=== PATIENT | female | born 1965 | race Two or more races ===

== ENCOUNTER 2021-02-11 09:31 | Outpatient (CLI) | payer OTHER | END 2021-02-11 09:32 | disposition home or self-care (01) | LOC: LAB 09:31 | PROVIDERS: ATTEND Specialist | DX: I10 Essential (primary) hypertension (principal); E55.9 Vitamin D deficiency, unspecified; N39.0 Urinary tract infection, site not specified; Z44.8 Encounter for fitting and adjustment of other external prosthetic devices ==

== ENCOUNTER → 2021-02-18 10:52 | Outpatient (CLI) | payer OTHER ==
[~2021-02-18 10:52] MED LIST: ACID-PEP20 MG; KETO10TA2 PO; NORFLEX100MG PO; TENORMIN25 MG PO
== END | disposition home or self-care (01) ==
LOC: LAB 10:52
PROVIDERS: ATTEND Specialist
DX: Z44.9 Encounter for fitting and adjustment of unspecified external prosthetic device (principal)

== ENCOUNTER 2021-02-18 11:38 | Emergency (ER) | payer OTHER ==
[~2021-02-18] VITALS: Ht 162.6 cm; Wt 72.6 kg
[2021-02-18] MEDS ORDERED: TENORMIN25 MG PO (12:15)
[2021-02-18] MEDS ORDERED: ACID-PEP20 MG (12:16)
[2021-02-18] MEDS ORDERED: NORFLEX100MG PO (15:00)
[2021-02-18] MEDS ORDERED: KETO10TA2 PO (15:00)
== END 2021-02-18 15:07 | disposition home or self-care (01) ==
LOC: ER 11:38
DX: M54.50 Low back pain, unspecified (principal)

== ENCOUNTER 2021-03-01 15:20 | Outpatient (CLI) | payer OTHER | END 2021-03-01 15:35 | disposition home or self-care (01) | LOC: RAD 15:20 | DX: M25.552 Pain in left hip (principal); M25.551 Pain in right hip ==

== ENCOUNTER 2021-05-31 09:38 | Outpatient (CLI) | payer OTHER | END 2021-05-31 09:39 | disposition home or self-care (01) | LOC: LAB 09:38 | DX: E55.9 Vitamin D deficiency, unspecified (principal); E11.9 Type 2 diabetes mellitus without complications; N30.00 Acute cystitis without hematuria; E78.2 Mixed hyperlipidemia; E03.9 Hypothyroidism, unspecified ==

== ENCOUNTER 2021-07-29 12:44 | Emergency (ER) | payer OTHER ==
[~2021-07-29] VITALS: Ht 162.6 cm; Wt 72.6 kg
[2021-07-29] MEDS ORDERED: PRILOSEC2.5 MG PO (13:20)
== END 2021-07-29 17:30 | disposition home or self-care (01) ==
LOC: ER 12:44
DX: M62.830 Muscle spasm of back (principal); M54.9 Dorsalgia, unspecified

== ENCOUNTER 2021-09-09 08:05 | Outpatient (CLI) | payer OTHER ==
[~2021-09-09 08:05] MED LIST changes: +PRILOSEC2.5 MG PO
== END 2021-09-09 08:08 | disposition home or self-care (01) ==
LOC: LAB 08:05
DX: N39.0 Urinary tract infection, site not specified (principal); N62 Hypertrophy of breast; R73.09 Other abnormal glucose

== ENCOUNTER 2022-01-06 09:25 | Outpatient (CLI) | payer OTHER | END 2022-01-06 09:27 | disposition home or self-care (01) | LOC: LAB 09:25 | PROVIDERS: ATTEND Specialist | DX: I10 Essential (primary) hypertension (principal); E55.9 Vitamin D deficiency, unspecified; N30.00 Acute cystitis without hematuria; E11.9 Type 2 diabetes mellitus without complications; N62 Hypertrophy of breast; R73.09 Other abnormal glucose; E78.49 Other hyperlipidemia ==

== ENCOUNTER 2022-05-21 12:40 | Outpatient (CLI) | payer OTHER | END 2022-05-21 12:49 | disposition home or self-care (01) | LOC: SONOGRAMA 12:40 | DX: M65.861 Other synovitis and tenosynovitis, right lower leg (principal); M65.862 Other synovitis and tenosynovitis, left lower leg; R10.2 Pelvic and perineal pain ==

== ENCOUNTER 2022-06-23 09:41 | Outpatient (CLI) | payer OTHER | END 2022-06-23 11:52 | disposition home or self-care (01) | LOC: LAB 09:41 | DX: D68.8 Other specified coagulation defects (principal); E03.9 Hypothyroidism, unspecified; N39.0 Urinary tract infection, site not specified; R74.8 Abnormal levels of other serum enzymes; R76.8 Other specified abnormal immunological findings in serum; R11.0 Nausea; Z86.010 Personal history of colon polyps; L29.0 Pruritus ani ==

== ENCOUNTER 2022-09-27 14:24 | Outpatient (CLI) | payer OTHER | END 2022-09-27 14:31 | disposition home or self-care (01) | LOC: SONOGRAMA 14:24 | PROVIDERS: ATTEND Internal Medicine Nephrology | DX: N20.0 Calculus of kidney (principal); I12.9 Hypertensive chronic kidney disease with stage 1 through stage 4 chronic kidney disease, or unspecified chronic kidney disease; E03.9 Hypothyroidism, unspecified ==